=== PATIENT | male | born 1960 | race African-American/Black ===

== ENCOUNTER 2018-01-13 11:25 | Outpatient (CLI) | payer MEDICAID, OTHER ==
--- NOTE | 2018-01-13 15:30 | Diagnostic Imaging Report ---
Indication: Cough Technique: 2 views of the chest Comparison: No Findings: The heart is borderline enlarged. The aorta is tortuous and ectatic. The lungs and pleural spaces are clear. Impression: Borderline cardiomegaly. No acute process
== END 2018-01-13 13:25 | disposition home or self-care (01) ==
LOC: RAD 11:25
DX: R05 Cough (principal); I51.7 Cardiomegaly
CPT/HCPCS: 71046

== ENCOUNTER 2018-06-15 10:06 | Outpatient (CLI) | payer MEDICAID ==
--- NOTE | 2018-06-15 11:25 | Diagnostic Imaging Report ---
Indication: Cough Comparison: 01/13/2018 2 views of the chest obtained. Findings: No definite infiltrate or pulmonary vascular congestion identified. The heart is enlarged. The aorta is mildly enlarged consistent with atherosclerotic vascular disease. The lateral view is nondiagnostic due to very low lung volumes. The bones are osteopenic. Impression: No acute disease
== END 2018-06-15 12:06 | disposition home or self-care (01) ==
LOC: RAD 10:06
DX: R05 Cough (principal); M85.80 Other specified disorders of bone density and structure, unspecified site; I51.7 Cardiomegaly
CPT/HCPCS: 71046